=== PATIENT | female | born 1950 | race Caucasian/White ===

== ENCOUNTER 2017-09-28 18:12 | Emergency (ER) | payer MEDICARE ==
[2017-09-28] MEDS ORDERED: Ondansetron ODT TAB* 4 MG PO ONE (20:52)
--- NOTE | 2017-09-28 21:04 | ED ---
Influenza-Like Illness - HPI Summary HPI Summary: Patient here with influenza-like symptoms for the past 2 days. Reports 2 days ago she developed acute fatigue with generalize arthralgias and sore throat, cough and congestion. She had 2 episodes of vomiting today once on the way here and once in the waiting room. Reports she feels much better now. Has had an episode of diarrhea as well. Denies ravindra stomach pain - just mostly feels "off". She admits to a history of pleurisy at - denies asthma, COPD, frequent bronchitis, pneumonia. Does state she's been trying to cough up chest congestion and has been having difficulty. She's been drinking lots of water, urinating well and still eating. Her has recently been sick with similar symptoms - she presumes this is where she developed her illness. Imms are up-to-date otherwise. - History of Current Complaint Chief Complaint: EDFluSymptoms Time Seen by Provider: 09/28/17 20:15 Hx Obtained From: Patient, Family/Horse Trekking Guide - - Allergy/Home Medications Allergies/Adverse Reactions: Allergies Allergy/AdvReac Type Severity Reaction Status Date / Time night shade Allergy GI Upset Uncoded 09/28/17 20:34 tomatoes Allergy GI Upset Uncoded 09/28/17 20:34 PMH/Surg Hx/FS Hx/Imm Hx Previously Healthy: Yes Endocrine/Hematology History: Denies: Hx Anticoagulant Therapy, Hx Blood Disorders Cardiovascular History: Reports: Hx Hypertension - takes lisinopril daily Respiratory History: Reports: Other Respiratory Problems/Disorders - pleurisy as a child - intermittent bronchitis -no routine lung issues Denies: Hx Asthma, Hx Chronic Obstructive Pulmonary Disease (COPD) - Immunization History Date of Tetanus Vaccine: unk Date of Influenza Vaccine: none Immunizations Up to Date: Yes Infectious Disease History: No Infectious Disease History: Denies: Traveled Outside the [place] in Last 30 Days - Family History Known Family History: Positive: Other - mom - pluerisy - Social History Lives: With Family Alcohol Use: Rare Hx Substance Use: No Substance Use Type: Reports: None Hx Tobacco Use: Yes - not currently Smoking Status (MU): Former Smoker Review of Systems Positive: Fever, Fatigue Eyes: Negative Positive: Sore Throat, Nasal Discharge Cardiovascular: Negative Negative: Chest Pain Positive: Cough. Negative: Shortness Of Breath Positive: Vomiting, Nausea Positive: no symptoms reported Positive: Arthralgia Skin: Negative Neurological: Negative Psychological: Normal All Other Systems Reviewed And Are Negative: Yes Physical Exam Triage Information Reviewed: Yes Vital Signs On Initial Exam: Initial Vitals Temp Pulse Resp BP Pulse Ox 98.5 F 97 20 145/71 99 09/28/17 18:20 09/28/17 18:20 09/28/17 18:20 09/28/17 18:20 09/28/17 18:20 Vital Signs Reviewed: Yes Appearance: Positive: Well-Appearing - appears mildly fatigued - otherwise color is good, speaking in full sentences, resting on stretcher in good spirits , No Pain Distress, Well-Nourished Skin: Positive: Warm, Skin Color Reflects Adequate Perfusion, Dry Diagnostics - Vital Signs Vital Signs Temp Pulse Resp BP Pulse Ox 09/28/17 18:20 98.5 F 97 20 145/71 99 - Laboratory Lab Statement: Any lab studies that have been ordered have been reviewed, and results considered in the medical decision making process. Flu Symptom Course/Dx - Course Course Of Treatment: CXR w/o acute findings - possible COPD - reviewed by myself and Dr. Justin. Influenza B. Education and tx provided. Return to ED if danger s/sx present - Diagnoses Provider Diagnoses: Influenza B Discharge - Discharge Plan Condition: Stable Disposition: HOME Prescriptions: Albuterol HFA INHALER* [Ventolin HFA Inhaler*] 2 puff INH Q6H PRN #1 mdi PRN Reason: Cough Oseltamivir CAP* [Tamiflu CAP*] 75 mg PO BID #9 cap Patient Education Materials: Influenza (ED) Referrals: Ching Powell NP [Primary Care Provider] - Additional Instructions: You appear to have influenza B. This was treated tonight with Tamiflu. You may knot picker cloth the remainder of your prescription at your pharmacy (Tamiflu and an albuterol inhaler to be used as needed for chest tightness, cough, etc). You may also use supportive measures to help you through this illness. If your symptoms persist beyond 7-14 days, follow up with her primary care doctor. If you developed worsening of symptoms despite recommendations, return to the emergency department Perform nasal washes/netti pot 2 times per day with 8 ounces of warm water plus a quarter teaspoon of salt or saline nasal spray as needed Perform throat gargles with warm salt water as needed Drink 60+ ounces of water daily Sleep 8+ hours per night Avoid dairy and sugar Drink hot herbal/decaf tea with lemon and honey Drink chicken broth (preferably organic, free range chicken) Using humidifier in your house, but especially near bed at night. You may also keep home temperature at 68F or less. Try facial steam with or without eucalyptus essential oil or Vicks vapor rub for decongestion Avoid smoke, candles, perfume/cologne, air freshener's, scented lotions, etc. Consider taking vitamin D 3 5000 IUs and vitamin C 1000 mg every day daily during illness
[2017-09-28] MEDS ORDERED: Oseltamivir CAP* 75 MG CAP PO ONE (21:13)
--- NOTE | 2017-09-28 21:51 | RAD ---
INDICATION: Cough and chest tightness COMPARISON: None TECHNIQUE: PA and lateral views of the chest were obtained. FINDINGS: The heart and mediastinum are normal in size and contour. There is coarse calcification overlying the arch of the aorta The lungs are grossly clear. There is no evidence of large pleural effusion. Visualized bones are normal for the patient's age. There is no radiographic evidence of free air beneath the diaphragm IMPRESSION: No radiographic evidence of acute cardiopulmonary disease.
[2017-09-28 22:00] VITALS: BP 118/54
== END 2017-09-28 21:58 | disposition home or self-care (01) ==
LOC: ED 18:12
DX: J11.1 Influenza due to unidentified influenza virus with other respiratory manifestations (principal); R11.2 Nausea with vomiting, unspecified; R05 Cough; Z86.79 Personal history of other diseases of the circulatory system; R50.9 Fever, unspecified
CPT/HCPCS: 71046; 87502; 99282; A9270-GY